=== PATIENT | male | born 1990 | race Two or more races ===

== ENCOUNTER 2019-12-11 14:47 | Emergency (ER) | payer OTHER, SELFPAY ==
[~2019-12-11] VITALS: Ht 167.6 cm; Wt 70.5 kg
[2019-12-11 14:49] VITALS: BP 103/87
[2019-12-11] MEDS ORDERED: ACETAMINOPHEN 500 MG TABLET ONE (15:54)
[2019-12-11] MEDS ORDERED: KETOROLAC 30 MG/1 ML ONE (15:54)
[2019-12-11] MEDS ORDERED: ACETAMINOPHEN 500 MG TABLET PO ONE (16:00)
[2019-12-11] MEDS ORDERED: KETOROLAC 30 MG/1 ML IM ONE (16:00)
[2019-12-11 16:12] LABS: RAPID INFLUENZA A POSITIVE (Negative); RAPID INFLUENZA B Negative (Negative)
== END 2019-12-11 16:39 | disposition home or self-care (01) ==
LOC: ED 16:33
DX: J10.1 Influenza due to other identified influenza virus with other respiratory manifestations (principal); R50.9 Fever, unspecified; F17.210 Nicotine dependence, cigarettes, uncomplicated; M79.10 Myalgia, unspecified site; H92.02 Otalgia, left ear
CPT/HCPCS: 71046; 87081; 87400; 87880; 96372; 99284; J1885

== ENCOUNTER 2020-10-09 00:22 | Emergency (ER) | payer SELFPAY ==
[~2020-10-09] VITALS: Ht 165.1 cm; Wt 76.3 kg
[2020-10-09 00:25] VITALS: BP 151/97
--- NOTE | 2020-10-09 02:17 | NUR ---
PT TO ROOM FROM LOBBY
--- NOTE | 2020-10-09 02:18 | NUR ---
not in lobby
--- NOTE | 2020-10-09 02:35 | NUR ---
not in lobby
--- NOTE | 2020-10-09 03:02 | NUR ---
not in lobby
== END 2020-10-09 03:03 | disposition left against medical advice (07) ==
LOC: ED 02:57
DX: N49.8 Inflammatory disorders of other specified male genital organs (principal); Z53.21 Procedure and treatment not carried out due to patient leaving prior to being seen by health care provider